=== PATIENT | female | born 1985 | race African-American/Black ===

== ENCOUNTER 2017-12-29 09:56 | Inpatient (IN) | payer OTHER ==
[2017-12-29] MEDS ORDERED: OXYTOCIN/LR 20 UNIT/1,000 ML BAG IV SCH ×2 (10:00→13:00)
[2017-12-29] MEDS ORDERED: Ringers Lactate 1,000 ML IV ONE (10:11)
[2017-12-29] MEDS ORDERED: OXYTOCIN/LR 20 UNIT/1,000 ML BAG IV ONE (10:11)
[2017-12-29] MEDS ORDERED: PENICILLIN G POT 5 MU/100 ML BAG IV ONE (10:11)
[2017-12-29] MEDS ORDERED: METHYLERGONOVINE 0.2MG/ML AMP IM ONE (10:21)
[2017-12-29] MEDS ORDERED: BUTORPHANOL 1 MG/ML INJ ONE (10:24)
[2017-12-29] MEDS ORDERED: Ringers Lactate 1,000 ML IV PRN (10:33)
[2017-12-29] MEDS ORDERED: METHYLERGONOVINE 0.2MG/ML AMP IM PRN ×2 (10:33→12:24)
[2017-12-29] MEDS ORDERED: CARBOPROST TROME 250 MCG/ML IM PRN (10:33)
[2017-12-29] MEDS ORDERED: Ringers Lactate 1,000 ML IV SCH (11:00)
[2017-12-29 11:01] VITALS: BMI 22.8
[2017-12-29 11:26] LABS: RPR Titer ND
[2017-12-29 11:31] LABS: Absolute Lymphocytes (CBC) 1.5 K/uL (0.7-4.9); Absolute Monocytes 0.5 K/uL (0.1-1.3); Basophils % 0.7 % (0-1.3); Eosinophils % 0.2 % (0-4.4); Lymphocytes % 13.8 % (15.3-44.8); MCH 20.7 pg (27.0-35.0); MCV 68.7 fL (80-100); MPV 9.9 fL (7.6-11.3); Monocytes % 4.9 % (3.3-12.3); RBC Red Blood Cell Count 3.64 M/uL (3.86-4.86)
[2017-12-29] MEDS ORDERED: METHYLERGONOVINE 0.2 MG TAB PO PRN (12:24)
[2017-12-29] MEDS ORDERED: ACETAMINOPHEN 500 MG TAB PO PRN (12:24)
--- NOTE | 2017-12-29 12:27 | P.BOP ---
Preoperative diagnosis: Postoperative diagnosis: Delivered Primary procedure: Non-sterile, controlled delivery of viable female infant Estimated blood loss: <300ml Complications: None Transferred to: Other ([id number])
[2017-12-29 13:15] LABS: Anisocytosis 2+; Blood Morphology Comment NOTED (NOT SEEN); Hypochromasia 1+; Platelet Estimate ADEQ; Polychromasia 2+; Urine White Blood Cell Casts OK
[2017-12-29 13:16] LABS: Burr Cells 1+; Poikilocytosis 2+
[2017-12-29] MEDS: IBUPROFEN 200 MG TAB PO PRN (21:15)
[2017-12-29 21:48] LABS: RPR (Rapid Plasma Reagin) NON-REACT (NON-REACT)
[2017-12-30] MEDS: IBUPROFEN 200 MG TAB PO PRN ×2 (04:15→13:03)
[2017-12-30 05:12] LABS: Absolute Lymphocytes (CBC) 3.3 K/uL (0.7-4.9); Absolute Monocytes 1.1 K/uL (0.1-1.3); Absolute Neutrophil 8.2 K/uL (1.8-8.0); Basophils % 0.8 % (0-1.3); Eosinophils % 0.9 % (0-4.4); Hematocrit 23.4 % (36.0-45.0); Lymphocytes % 25.6 % (15.3-44.8); MCV 68.5 fL (80-100); MPV 11.1 fL (7.6-11.3); Monocytes % 8.7 % (3.3-12.3); RBC Red Blood Cell Count 3.41 M/uL (3.86-4.86)
--- NOTE | 2017-12-30 08:24 | P.PN ---
Date of Service: 12/30/17 S-No complaints O-Afeb, vs stable, 7.3 HH, fundus nontender, firm, bleeding minimal A-Severe anemia, likely iron deficiency P-Observe until tomorrow am, social work professor consult secondary to suspected poor care of children, prior child murdered by male partner, grand multiparity, unmarried
[2017-12-31] MEDS: IBUPROFEN 200 MG TAB PO PRN ×2 (04:05→12:40)
[2017-12-31] MEDS ORDERED: Tdap (Diph,Pertuss(Acell),Tet Vac) 0.5 ML SYR IMVAC ONE (09:30)
--- NOTE | 2017-12-31 09:32 | DN ---
Surgeon: Ton Maza MD Ms. Pereira is a 32-year-old black female, 6, para 5-0-0-4, at approximately 37+ weeks gestati on followed through [facility] by her history. She was brought in by ambulance with complaints of contract ions, was noted to be 7+ cm dilated, vertex presentation. She was given a dose of penicillin because by her history she was beta strep positive, but no records were available despite multiple attempts of obtaining them through [facility]. She had a relatively rapid labor and delivery with first stage of la bor approximately 3 hours, second stage of labor of 1 minute. She delivered by spontaneous controlle d nonsterile delivery of 6 pounds 3 ounce female , 9 and 9. After some milking of the um bilical cord, the cord was clamped, cut, and the infant placed on mother's upper abdomen. Cord blood was obtained. The placenta was spontaneously expelled and appeared to be intact. She only had smal l periurethral abrasions which required no suturing. She received 1 mg of Stadol for analgesia durin g her labor course and did receive 1 dose of 5 million units of penicillin approximately 2 hours prio r to delivery. Estimated total blood loss was less than 300 cc. She was given a dose of methargen a t the time of cord clamping because of severe anemia, antepartum, probably iron deficiency. FABRICIO/MISTY Voice ID: [id number] Report ID: [id number]
[2017-12-31 12:04] VITALS: BP 106/69; TEMP 97.4
[2017-12-31 13:05] LABS: HBsAG Nonreactive (Nonreactive)
--- NOTE | 2018-01-01 05:13 | DS ---
Date of Discharge: 12/31/2017 Ms Pereira is a 32-year-old single black female, 6, para 5-0-0-4, at approximately 37+ weeks g estation followed through [facility] with problems of anemia and positive chlamydia and positive bet a strep carriage. She presenting in active labor. She spontaneously delivered a 6 pounds 3 ounces f emale , 9 and 9, receiving 1 mg dose of Stadol for analgesia. She was dismissed on the s econd day because she had only received 1 dose of penicillin prior to delivery for prophyl axis. This would enable further observation of her infant. She was dismissed to take ibuprofen or T ylenol for pain relief. , she suffered no perineal lacerations. Lab work during her hospi sneha stay included admission hemoglobin and hematocrit of 7.5/25.0, dismissal 7.2/23.4. She is A posi tive blood type and nonreactive RPR. Hepatitis B is pending and HIV rapid panel is negative. She wa s dismissed to return to the [facility] for care and contraceptive management and to star t vitamins and iron. FABRICIO/MISTY Voice ID: [id number] Report ID: [id number]
--- NOTE | 2018-01-04 07:08 | P.PN ---
Date of Service: 01/04/18 S-No complaints, headache much improved O-Has passed flatus, abdomen soft, bandage clean A-Satisfactory P-Check cbc, home tomorrow am.
[2018-01-04] MEDS ORDERED: DOCUSATE CALCIUM 240 MG CAP PO SCH (09:00)
--- NOTE | 2018-01-22 13:16 | HP ---
Date of Admission: 12/29/2017 History: Ms. Pereira is a 32-year-old black female 6, para 5-0-0-4, followed through the [facility], who is admitted in active labor. She is noted to be approximately 7 cm on admission. She d enies recent cough, cold, fever, chills. She denies any significant vaginal bleeding or spotting. Past Medical History: Please see record. Family History: Please see record. Review of Systems: She reports no recent cough, cold, fever, or chills. No recent nausea or vomiting. She denies any b reast lumps. Infant has been active. She denies any bowel or bladder issues. Physical Examination: General: Reveals a black female, mild discomfort. Neck: Supple without adenopathy or thyromegaly. Lungs: Clear. Cardiac: Regular rate and rhythm without murmurs. Breasts: Not examined. Abdomen: Estimated weight approximately 6+ pounds. Pelvic: Cervix approximately 8 cm dilated vertex presentation. Extremities: No cyanosis, clubbing, edema. Impression: A 37+ week , in active labor. Plan: The patient will be prophylaxed with penicillin because of risk for beta-strep carriage until records are obtained from [facility]. FABRICIO/MISTY Voice ID: [id number]
== END 2017-12-31 12:40 | disposition home or self-care (01) | DRG 775 ==
LOC: L&D 09:56 → 2ND-WC 10:02
PROVIDERS: ADMIT Specialist; ATTEND Specialist
PROC: 10E0XZZ Delivery of Products of Conception, External Approach (ICD-10-PCS; principal; 2017-12-29)
DX: O99.824 Streptococcus B carrier state complicating childbirth (principal); O99.02 Anemia complicating childbirth; D50.9 Iron deficiency anemia, unspecified; Z3A.37 37 weeks gestation of pregnancy; Z37.0 Single live birth; Z23 Encounter for immunization
CPT/HCPCS: 36415; 85025; 86592; 86900; 86901; 87340; 90715; G0433; J0595; J2210; J2590